=== PATIENT | female | born 1985 | race African-American/Black ===

== ENCOUNTER 2022-01-23 22:00 | Emergency (ER) | payer MEDICAID ==
[~2022-01-23] VITALS: Ht 161.3 cm; Wt 72.9 kg
[2022-01-24 02:48] LABS: HEMATOCRIT 31.7 % (36.0-48.0); HEMOGLOBIN 10.3 g/dL (12.0-16.0); MEAN CORPUSCULAR HEMOGLOBIN 22.2 pg (28.0-32.0); MEAN CORPUSCULAR VOLUME 68.5 fL (81.0-99.0); RED BLOOD CELL COUNT 4.63 mill/uL (4.2-5.4); RED CELL DISTRIBUTION WIDTH 19.7 % (11.6-14.6)
[2022-01-24 03:03] LABS: CHLORIDE 105 mEq/L (98-107)
[2022-01-24 06:28] VITALS: BP 161/97
[2022-01-28 10:16] LABS: PLATELET 1119 x1000/uL (130-400)
== END 2022-01-24 06:51 | disposition short-term general hospital (02) ==
LOC: ER 22:00 → CANBEDREQ 01-24 05:11 → ER 01-24 06:51
DX: D75.839 Thrombocytosis, unspecified (principal); I10 Essential (primary) hypertension
CPT/HCPCS: 36415; 71045; 80053; 85027; 99284